=== PATIENT | male | born 1995 | race Caucasian/White ===

== ENCOUNTER 2024-03-16 12:39 | Emergency (ER) | payer OTHER ==
[~2024-03-16] VITALS: Ht 180.3 cm; Wt 101.4 kg
[2024-03-16] MEDS ORDERED: CEPHALEXIN MONOHYDRATE 500 MG CAP PO ONE (13:30)
[2024-03-16] MEDS ORDERED: CEPHALEXIN500 M1 PO (13:31)
[2024-03-16 13:57] VITALS: BP 114/88
== END 2024-03-16 13:57 | disposition home or self-care (01) ==
LOC: ED 12:39
DX: S91.312A Laceration without foreign body, left foot, initial encounter (principal); W25.XXXA Contact with sharp glass, initial encounter
CPT/HCPCS: 12002; 99282; A9270

== ENCOUNTER 2025-03-18 07:18 | Emergency (ER) | payer OTHER ==
[~2025-03-18] VITALS: Ht 180.3 cm; Wt 97.5 kg
[~2025-03-18 07:18] MED LIST: CEPHALEXIN500 M1 PO
[2025-03-18 07:48] LABS: BASOPHILS 0.9 % (0.2-1.2); EOSINOPHILS 1.3 % (0.8-7.0); HEMATOCRIT 47.8 % (40.1-51.0); HEMOGLOBIN 16.4 g/dL (13.7-17.5); LYMPHOCYTES 42.1 % (21.8-53.1); MCH 31.6 PG (25.7-32.2); MCHC 34.3 g/dL (32.3-36.5); MCV 92.1 fL (79.0-92.2); MONOCYTES 10.1 % (5.3-12.2); NEUTROPHILS 45.4 % (34.0-67.9); PLATELET COUNT 271 K/uL (163-337); RBC 5.19 M/uL (4.63-6.08)
[2025-03-18 08:07] LABS: ALBUMIN/GLOBULIN RATIO 0.95 (1.1-2.4); ANION GAP 12.6 (7-21); BILIRUBIN, TOTAL 0.4 mg/dL (0.2-1.0); BUN/CREATININE RATIO 10.52 (6.0-28.6); CALCIUM 9.3 mg/dL (8.5-10.1); CREATININE, SERUM 0.95 mg/dL (0.70-1.30); POTASSIUM 3.6 mmol/L (3.5-5.1); PROTEIN, TOTAL 8.2 g/dL (6.4-8.2)
[2025-03-18] MEDS ORDERED: LIDOCAINE & ANTACID 35 ML BTL PO ONE (09:45)
[2025-03-18] MEDS ORDERED: ESMOLOL HCL 100 MG/10 ML VIAL IV ONE ×2 (11:15→11:30)
[2025-03-18] MEDS ORDERED: ESMOLOL HCL 250 ML IV SCH (11:15)
[2025-03-18] MEDS ORDERED: LORazepam 2 MG/ML VIAL IV ONE (11:15)
[2025-03-18] MEDS ORDERED: MIDAZOLAM HCL 2 MG/2 ML VIAL IV ONE (11:15)
[2025-03-18 11:50] VITALS: BP 141/80
--- NOTE | 2025-03-18 16:11 | EKG ---
[facility] [address] [place] [id number] Signed Normal sinus rhythm Right axis deviation Incomplete right bundle branch block Right ventricular hypertrophy Abnormal ECG No previous ECGs available Confirmed by Michaela Betts MD () on 03/18/2025 4:11:08 PM Electronically Signed By: MICHAELA BETTS MD 03/18/25 161 PATIENT NAME: ADALBERTOTRISHA Electrocardiogram DATE OF : [birth year] PHYSICIAN: MICHAELA BETTS MD REPORT #: [id number] REPORT IS CONFIDENTIAL AND NOT TO BE RELEASED WITHOUT AUTHORIZATION
== END 2025-03-18 11:50 | disposition short-term general hospital (02) ==
LOC: ED 07:18
PROVIDERS: Emergency Medicine
DX: I71.00 Dissection of unspecified site of aorta (principal); I77.79 Dissection of other specified artery; I35.0 Nonrheumatic aortic (valve) stenosis
CPT/HCPCS: 36415; 71045; 71275; 74174; 80053; 83880; 84484; 85025; 93005; 93010; 99285-25; J2060; Q9967